=== PATIENT | female | born 1965 | race Caucasian/White ===

== ENCOUNTER → 2017-12-07 | Outpatient (CLI) | payer BC | END | disposition home or self-care (01) | LOC: PLD 13:43 → LAB SHORT 13:43 | DX: D48.5 Neoplasm of uncertain behavior of skin (principal) | CPT/HCPCS: 88305 ==

== ENCOUNTER → 2020-05-28 | Outpatient (CLI) | payer OTHER ==
[2020-05-30 17:11] LABS: HPV 16 Negative (Negative); HPV 18 Negative (Negative); HPV OTHER HR TYPES Negative (Negative)
== END ==
LOC: OLS 17:28 → LAB SHORT 17:28
PROVIDERS: Nurse Practitioner Family
DX: Z12.4 Encounter for screening for malignant neoplasm of cervix (principal)
CPT/HCPCS: 87624; G0123

== ENCOUNTER → 2021-06-11 | Outpatient (CLI) | payer OTHER | END | disposition home or self-care (01) | LOC: LAB SHORT 10:45 | DX: N39.0 Urinary tract infection, site not specified (principal) | CPT/HCPCS: 87086 ==

== ENCOUNTER → 2022-09-07 | Outpatient (CLI) | payer OTHER ==
[~2022-09-07] MED LIST: EUTHYROX175 MCG; IRBE75; METF500; NAPR500ERA
== END | disposition home or self-care (01) ==
LOC: LAB SHORT 14:20 → LAB 14:20 → LAB SHORT 09-08 14:20
DX: E11.9 Type 2 diabetes mellitus without complications (principal)
CPT/HCPCS: 82043

== ENCOUNTER 2023-08-12 06:56 | Day surgery (SDC) | payer OTHER ==
[~2023-08-12] VITALS: Ht 160 cm; Wt 100.3 kg
[2023-08-12] VITALS (10 sets, daily range): BP systolic 106–138; BP diastolic 57–85
[~2023-08-12 06:56] MED LIST changes: -EUTHYROX175 MCG; +EUTHYROX175 MCG PO; -IRBE75; +IRBE75 PR; -METF500; +METF500 PO
[2023-08-12] MEDS ORDERED: MONTELUKAST SOD10 MG PO (07:12)
--- NOTE | 2023-08-12 09:49 | NUR ---
Into step s/p hernia repair. Pt is a&o x 4. Pt reports 2/10 abdominal/incisional pain. Pt denies nausea since med with Reglan in PACU. Opsite with 4x4 guaze dressing c/d/i. No noted bleeding or swelling. Sats initially trending 88% on ra-pt placed on 2 liters nasal canula and sats to 91%. Encouraged c&db and sats trending 98-100%. Pt given PO fluids and cecelia crackers per her request.
--- NOTE | 2023-08-12 10:10 | NUR ---
Pt med with Percocet for pain-see emar. Assisted pt to sit at the bedside-tolerated well. No dizziness or nausea. Sats 98-100% on ra.
--- NOTE | 2023-08-12 10:30 | NUR ---
Patient up to Ambulate independently. Gait steady. Dressing to procedure site clean, dry, intact with no visible drainage, swelling, erythema or bruising noted. Discharge instructions reviewed with patient. Patient verbalizes understanding. Copy given to patient to take home.
== END 2023-08-12 10:30 | disposition home or self-care (01) ==
LOC: ORSCMMR 06:56 → ORD 08:00 → ORSCMMR 10:30
PROVIDERS: Surgery
PROC: 0WUF0JZ Supplement Abdominal Wall with Synthetic Substitute, Open Approach (ICD-10-PCS; principal; 2023-08-12 08:00)
PROC: 3E0M05Z Introduction of Adhesion Barrier into Peritoneal Cavity, Open Approach (ICD-10-PCS; principal; 2023-08-12 08:00)
DX: K42.9 Umbilical hernia without obstruction or gangrene (principal); I10 Essential (primary) hypertension; E11.9 Type 2 diabetes mellitus without complications; E03.9 Hypothyroidism, unspecified; E78.00 Pure hypercholesterolemia, unspecified; J45.909 Unspecified asthma, uncomplicated; E66.9 Obesity, unspecified; Z68.39 Body mass index [BMI] 39.0-39.9, adult; Z79.84 Long term (current) use of oral hypoglycemic drugs; Z79.899 Other long term (current) drug therapy
CPT/HCPCS: 82947; A9270; C1781; J0690; J1100; J1885; J2250; J2405; J2704; J2765; J3010; J7120